=== PATIENT | male | born 1955 | race Caucasian/White ===

== ENCOUNTER 2017-05-15 02:37 | Emergency (ER) | payer OTHER, BC ==
[~2017-05-15 02:37] MED LIST: ALLEGRA PO; ASPIRIN81 M2 PO; AZITHROMYCIN250 MG PO; BENZONATATE200 M1 PO; BLOOD THINNER; BP MED; BRILINTA90 MG PO; CARTIA XT PO; CLEOCIN PO; DICLOFENAC PO; FLEXERIL10 MG PO; HCTZ PO; IBUPROFEN800 MG PO; KEFLEX500 MG PO; LIPITOR PO; LISINOPRIL10 MG PO; LISINOPRIL20 MG PO; LOCOID 0.1% LIP45 GM TOP; METOPROLOL TART25 MG PO; NAPROXEN PO; NIFEDIPINE XR PO; NITROGLYGERIN0.4 MG SL; NORCO 5/325 TAB1 TAB PO; PROAIR HFA8.5 GM INH; TESSALON200 MG PO; TOPROL XL PO; VISTARIL50 MG PO; VOLTAREN75 MG PO; ZITHROMAX PO
== END 2017-05-15 03:30 | disposition home or self-care (01) ==
LOC: SED 02:37
DX: M54.5 Low back pain (principal); I25.10 Atherosclerotic heart disease of native coronary artery without angina pectoris; K21.9 Gastro-esophageal reflux disease without esophagitis; E78.00 Pure hypercholesterolemia, unspecified; Z79.899 Other long term (current) drug therapy; X50.9XXA Other and unspecified overexertion or strenuous movements or postures, initial encounter; Y92.69 Other specified industrial and construction area as the place of occurrence of the external cause; Y99.0 Civilian activity done for income or pay
CPT/HCPCS: 99283

== ENCOUNTER 2017-06-02 13:33 | Emergency (ER) | payer BC ==
[~2017-06-02] VITALS: Ht 170.2 cm; Wt 111.1 kg
--- NOTE | ~2017-06-02 | CT98 ---
[facility] A Service of [facility] RADIOLOGY TEXT RESULTS PATIENT: ANNI PIERCE LOCATION: SED : 53 UNIT #: [id number] AGE: [address]: Rakesh Villafuerte MD SEX: M ORDER DR: [id number] [place] [id number] MR#: [id number] Acc #: [id number] NAME: ANNI PIERCE. : 1955 SEX: M STUDY DATE/TIME: 06/02/2017 14:19 UNIT: SED ROOM: STUDY DESCRIPTION: CT Lumbar Spine Wo Cont Attending Physician: Rakesh Villafuerte M.D. Ordering Physician: Rakesh Villafuerte M.D. Primary Care Physician: Cristopher Winchester D.O. MEDICAL IMAGING REPORT This report is preliminary unless electronic signature is present. EXAM CT lumbar spine HISTORY Pain. Lumbar strain 1.5-2 weeks ago, has not improved in the lower quadrant. TECHNIQUE CT lumbar spine performed. Bone soft tissue windows reviewed. Sagittal, coronal reconstructions performed. This CT exam was performed with one or more of the following radiation dose reduction techniques: automatic exposure control, adjustment of mA and/or kV according to patient size, and iterative reconstruction. COMPARISON No prior dedicated lumbar spine imaging for comparison. FINDINGS The visualized portions of liver, adrenal glands, kidneys, alimentary canal unremarkable. Atherosclerotic arterial calcifications. No aneurysm. The lumbar spine shows mild levoscoliosis of the lower lumbar spine. In the lateral projection there is some straightening of the normal cervical, uncertain normal lumbar lordosis. The vertebral body heights are within normal limits. Severe narrowing of the L1-L2 intervertebral disc space. Severe narrowing L2-L3 and L5-S1 disc spaces. Moderate to severe narrowing L4-L5 disc space. Vacuum disc phenomenon suggested T11-T12. Clearly present at L2-L3, L4-L5, L5-S1. Multilevel facet degenerative changes. No fracture. Other findings by intervertebral disc level below. T12-L1: Posterior disc osteophyte complex more pronounced right [facility] A Service of [facility] RADIOLOGY TEXT RESULTS PATIENT: ANNI PIERCE LOCATION: [facility] #: [id number] : 53 UNIT #: [id number] AGE: [address]: Rakesh Villafuerte MD SEX: M ORDER DR: paracentral region. Minimal right paracentral spinal canal narrowing. The neural foramina patent without evidence of exiting nerve impingement. L1-L2: Severe intervertebral disc, degenerative change as noted. Posterior disc osteophyte complex. Narrowing of the lateral recesses, left greater than right. Mild to mild/moderate central spinal canal narrowing. Bilateral foraminal narrowing left greater than right. Exiting left nerve irritation is a consideration. L2-L3: Short pedicles. Posterior concentric disc osteophyte complex. Moderate central spinal canal narrowing. Bilateral foraminal narrowing left greater than right. Exiting left nerve irritation is a consideration. L3-L4: Posterior concentric disc osteophyte complex superimposed on relatively short pedicles. Mild/moderate central spinal canal narrowing. Facet and ligamentum hypertrophic change. Moderate narrowing bilateral neural foramina probably greater on the right than left. Bilateral exiting nerve irritation is a consideration. There is some narrowing at bilateral lateral recesses. L4-L5: Posterior disc osteophyte complex slightly more pronounced in the right paracentral and right posterolateral aspect. Mild central spinal canal narrowing. Narrowing bilateral lateral recesses right greater than left. Mild left foraminal narrowing. Moderate to marked right foraminal narrowing due to facet degenerative changes. There are also osteophyte formations extending in the inferior aspect of the right neural foramen. Exiting right L4 nerve irritation or impingement is a consideration. L5-S1: Posterior concentric disc osteophyte complex slightly more pronounced in the right posterolateral aspect. There is no spinal stenosis. There is mass effect on the right lateral recess and irritation of the descending right S1 nerve is a consideration. Osteophyte components extending to the bilateral neural foramina. Associated facet degenerative change. There is moderate to marked left and marked right foraminal narrowing. Exiting right L5 nerve irritation or impingement is a consideration. Review of the coronal images demonstrates a larger field of view on the coronal reconstructed images than on the axial images. Coronal images demonstrate bilateral nonobstructing renal calculi more numerous on the left than the right. A dominant right lower pole 4 mm calculus and a dominant left lower pole 8 mm calculus. IMPRESSION 1. Abnormal examination. Please see the complete dictation above for full details. There is no acute bony or soft tissue abnormalities seen in the lumbar region. There is extensive moderate to severe degenerative change seen throughout the lumbar spine. Multilevel disc osteophyte complexes in conjunction with multilevel relatively STS. [facility] A Service of [facility] RADIOLOGY TEXT RESULTS PATIENT: ANNI PIERCE LOCATION: [facility] : 53 UNIT #: [id number] AGE: [address]: Rakesh Villafuerte MD SEX: M ORDER DR: short pedicles and multilevel facet ligament flavum degenerative hypertrophic change causing multilevel mild to moderate spinal canal narrowing. Findings most pronounced overall at the L2-L3, L3-L4, L4-L5 levels. The above constellation of degenerative changes also contributing to multilevel bilateral foraminal narrowing with multilevel potential exiting nerve irritation or rakesh impingement. Please see complete details in [id number] description in body of report above. If it would assist in patient management, spinal canal and neural foraminal contents could best be further evaluated with MRI if the patient is a candidate. 2. Bilateral nonobstructing renal calculi. 3. Atherosclerotic arterial calcifications. No aortic aneurysm seen on these images. Dictated by... Shilo Mcguire M.D. THIS IS AN ELECTRONICALLY VERIFIED REPORT Shilo Mcguire M.D. at 06/02/2017 10:46 PM RODGER/zabrina TD: 06/02/2017 21:40 JOB #: [id number] MEDICAL IMAGING REPORT Page 1 of 1
[2017-06-02] MEDS ORDERED: PROTONIX (13:42)
== END 2017-06-02 15:39 | disposition home or self-care (01) ==
LOC: SED 13:33
DX: M51.17 Intervertebral disc disorders with radiculopathy, lumbosacral region (principal); M51.36 Other intervertebral disc degeneration, lumbar region; I10 Essential (primary) hypertension; K21.9 Gastro-esophageal reflux disease without esophagitis; E78.00 Pure hypercholesterolemia, unspecified; E66.9 Obesity, unspecified; Z79.899 Other long term (current) drug therapy
CPT/HCPCS: 72131; 96372; 99283; J1885